=== PATIENT | female | born 1955 | race Hispanic/Latino ===

== ENCOUNTER 2017-11-26 10:22 | Day surgery (SDC) | payer OTHER ==
[2017-11-26] MEDS ORDERED: NACL 0.9% 1000 ML 1,000 ML IV SCH (12:00)
--- NOTE | 2017-11-26 12:07 | Anesthesia Day of Surgery ---
Anesthesia Day of Surgery - Day of Surgery Patient Examined: Yes Patient H&P Reviewed: Yes Patient is NPO: Yes
--- NOTE | 2017-11-26 12:07 | Anesthesia Consultation ---
Anesthesia Consult and Med Hx Date of service: 11/26/17 - Airway Anesthetic Teeth Evaluation: Good, Bridges ROM Head & Neck: Adequate Mental/Hyoid Distance: Adequate Mallampati Class: Class II Intubation Access Assessment: Probably Good - Pulmonary Exam CTA: Yes - Cardiac Exam Cardiac Exam: RRR - Pre-Operative Health Status ASA Pre-Surgery Classification: ASA3 Proposed Anesthetic Plan: MAC - Pulmonary Hx Pneumonia: Yes - Cardiovascular System Hx Hypertension: Yes (resolved) - Gastrointestinal Hx Gastroesophageal Reflux Disease: Yes - Endocrine Hx Cirrhosis: Yes (non alcoholic,ascites) - Other Systems Hx Cancer: No
[2017-11-26] MEDS ORDERED: DIPRIVAN 10 MG/ML IV ONE ×2 (12:35)
--- NOTE | 2017-11-26 13:31 | Operative Report ---
Operative Report Operative Report: Date of procedure: 11/26/2017 Procedure: Colonoscopy. Attending physician: Manuel Maurer MD Safety Manager: Manuel Maurer MD Indication: Patient is a 62-year-old female who presents for screening colonoscopy. A colonoscopy service to evaluate patient so that treatment may be directed based on the findings. Consent: Informed consent was obtained after advising the patient and family regarding nature of this procedure, its indications, potential benefits as well as possible complications including but not limited to bleeding perforation and adverse reaction to medication, infection as well as other cardiopulmonary complications. An informed written and verbal consent was then obtained after due opportunity was provided for questions and answers. Monitoring: Patient was monitored continuously with pulse oximetry and electrocardiographic recordings as well as blood pressure recordings. Vital signs remained stable throughout this procedure with no untoward events. Preoperative assessment: Patient was assessed immediately prior to this procedure for capacity to tolerate monitored anesthesia care and moderate sedation as well as general anesthesia. Patient's ASA classification is 2, Mallampati class is 2, Hyomental distance is 3. Instrument: Hostwayn video colonoscope Medications: Propofol given intravenously in divided doses. For details please refer to anesthesia records. Description of procedure: Patient was placed in the left lateral decubitus position after achieving sedation, a digital rectal examination was performed following which the colonoscope was introduced into the anal verge and advanced to the cecum which was identified by the cecal valve, the appendiceal orifice, as well as by the cecal strap and direct transillumination. The colonoscope was subsequently withdrawn with careful inspection of all mucosal surfaces. Patient tolerated this procedure well and was subsequently taken to the recovery room. The following findings were noted. Findings: Patient has retained liquid stool in sections of the colon particularly in the ascending colon cecum and in the descending colon. There was scattered diverticula seen in the sigmoid colon and descending colon. On the retroflex view at the anal verge, patient had prominent internal hemorrhoids. Impression: Retained stool Diverticular disease of the colon. Prominent Internal hemorrhoids. Plan: High-fiber diet. Prn stool softeners as needed. Repeat colonoscopy in 10 years.
--- NOTE | 2017-11-26 13:31 | Discharge Summary ---
Short Stay Discharge Plan Activity: advance as tolerated Weight Bearing Status: Weight Bear as Tolerated Diet: regular Additional Instructions: Post Sedation D/C Instructions When you return home you may resume your regular diet unless otherwise directed. -Go directly home from the hospital and rest quietly. You may resume normal activities tomorrow. -Do NOT drive, return to work, operate any machinery or make any important personal or business decisions today. -Do NOT drink any alcohol or take nerve or sleeping drugs. They add to the effects of the medicine still present in your body. Follow up with Dr. Maurer in 2 weeks to obtain treatment plan. Follow up with: TAI GARNETT MD [Primary Care Provider] - 7 Days
[2017-11-26 13:34] VITALS: BP 124/55
== END 2017-11-26 10:23 | disposition home or self-care (01) ==
LOC: GIO 10:22
PROVIDERS: ATTEND Internal Medicine Gastroenterology
DX: K57.30 Diverticulosis of large intestine without perforation or abscess without bleeding (principal); K58.1 Irritable bowel syndrome with constipation; K64.8 Other hemorrhoids; K21.9 Gastro-esophageal reflux disease without esophagitis; I10 Essential (primary) hypertension; M19.90 Unspecified osteoarthritis, unspecified site; F32.9 Major depressive disorder, single episode, unspecified; Z79.899 Other long term (current) drug therapy; Z88.1 Allergy status to other antibiotic agents; Z88.2 Allergy status to sulfonamides; Z87.891 Personal history of nicotine dependence; Z98.890 Other specified postprocedural states; Z83.71 Family history of colonic polyps
CPT/HCPCS: 45378; J2704